=== PATIENT | female | born 2000 | race Caucasian/White ===

== ENCOUNTER → 2022-04-03 | Outpatient (CLI) | payer OTHER, SELFPAY ==
--- NOTE | 2022-04-03 08:49 | ECHOD_ITS ---
Reason For Study: CHEST PAIN, PALPITATIONS Procedure This was a 2D Doppler, Color Flow transthoracic echocardiogram. Exam performed in department. Left Ventricle Normal LV size. Left ventricular systolic function is normal. The estimated ejection fraction is 60 %. Normal diastology for age. No regional wall motion abnormalities noted. Right Ventricle Normal RV size. Normal systolic function. Atria Normal left atrium. Normal right atrium. Mitral Valve Normal mitral valve. Tricuspid Valve Normal tricuspid valve. Aortic Valve Normal aortic valve. Trisinus/trileaflet aortic valve. Pulmonic Valve Normal pulmonic valve. Great Vessels Normal aortic root. The pulmonary artery is normal size. Normal inferior vena cava. Pericardium/Pleural No pericardial effusion. MMode/2D Measurements & Calculations LVIDd: 4.4 cm IVSd: 0.68 cm Ao root diam: 2.5 cm LVIDs: 3.1 cm LVPWd: 0.73 cm RVDd: 3.3 cm FS: 30.9 % LAV(MOD-bp): 27.0 ml LVAd ap4: 29.6 cm2 SV(MOD-sp4): 57.7 ml LAV(MOD-bp) Indexed: 16.0 ml/m2 LVLd ap4: 7.7 cm LAV(MOD-sp2): 26.0 ml EDV(MOD-sp4): 93.7 ml LAV(MOD-sp4): 27.6 ml EDV(sp4-el): 95.8 ml LVAs ap4: 16.6 cm2 LVLs ap4: 6.1 cm ESV(MOD-sp4): 36.0 ml ESV(sp4-el): 38.3 ml EF(MOD-sp4): 61.5 % EF(sp4-el): 60.0 % SV(sp4-el): 57.5 ml LA A4 area: 12.2 cm2 LA dimension(2D): 3.0 cm RA A4 area: 10.7 cm2 Time Measurements MV dec time: 0.20 sec Doppler Measurements & Calculations MV E max roque: 82.1 cm/sec Lat Peak E' Roque: 18.5 cm/sec Med Peak E' Roque: 15.1 cm/sec MV A max roque: 56.7 cm/sec E/E' lat: 4.4 E/E' med: 5.4 MV E/A: 1.4 Ao V2 max: 120.6 cm/sec LV V1 max: 98.5 cm/sec PA V2 max: 95.6 cm/sec Ao max P.8 mmHg LV V1 max P.9 mmHg TR max roque: 166.9 cm/sec TR max P.1 mmHg ECHO/Echo Complete Interpretation Summary Normal LV size. Left ventricular systolic function is normal. The estimated ejection fraction is 60 %. Normal diastology for age. Structurally normal valves. Ordering Physician: Jes Tavares Performed By: Elina Hernandez RDCS
== END | disposition home or self-care (01) ==
LOC: CVS 08:43
PROVIDERS: Visit Provider Registered Nurse
DX: R07.9 Chest pain, unspecified (principal); R00.2 Palpitations
CPT/HCPCS: 93306

== ENCOUNTER → 2022-05-19 | Outpatient (CLI) | payer OTHER, SELFPAY | END | disposition home or self-care (01) | LOC: PSN 12:28 | PROVIDERS: Visit Provider Internal Medicine Cardiovascular Disease | DX: R00.0 Tachycardia, unspecified (principal) | CPT/HCPCS: 93225; 93226 ==